=== PATIENT | female | born 1990 | race Caucasian/White ===

== ENCOUNTER → 2017-04-22 | Outpatient (CLI) | payer OTHER ==
[2017-04-22 16:29] LABS: BASO % 0.2 % (0.0-1.0); EOS # 0.2 10^3/uL (0.0-0.50); EOS % 1.9 % (0.0-3.0); IMMATURE GRANULOCYTE % 0.6 % (0-0); LYMPH # 2.2 10^3/uL (1.5-6.5); LYMPH % 24.1 % (24.0-44.0); MEAN CORPUSCULAR HEMOGLOBIN 26.2 pg (27.0-33.0); MEAN CORPUSCULAR HGB CONC 32.5 g/dl (32.0-36.5); MEAN CORPUSCULAR VOLUME 80.8 fl (80.0-96.0); MONO # 0.5 10^3/uL (0.0-0.8); NEUTROPHILS % 67.2 % (36.0-66.0); PLATELET COUNT, AUTOMATED 317 10^3/uL (150-450); RED CELL DISTRIBUTION WIDTH 13.5 % (11.5-14.5)
[2017-04-22 16:55] LABS: FREE T4 0.87 NG/DL (0.76-1.46)
== END ==
LOC: M LRY 11:24
PROVIDERS: ATTEND Nurse Practitioner Women's Health
DX: Z00.00 Encounter for general adult medical examination without abnormal findings (principal)

== ENCOUNTER → 2017-04-24 | Outpatient (CLI) | payer OTHER ==
--- NOTE | 2017-04-24 17:23 | REP ---
NON-OB PELVIC ULTRASOUND: HISTORY: Adnexal pain. The uterus measures 3.2 cm in transverse x 3 cm in AP x 6.7 cm in cephalocaudal dimensions. The endometrium measures 2.3 mm. The right ovary measures 2.9 x 1.3 x 1.6 cm. The left ovary measures 2.2 x 1.1 x 1.4 cm. Complex echogenic material is present in the cervix. IMPRESSION: There is complex echogenic material in the cervix. The examination is otherwise normal. Unreviewed
== END ==
LOC: M RAD 11:54
PROVIDERS: ATTEND Nurse Practitioner Women's Health
DX: R10.2 Pelvic and perineal pain (principal); N94.12 Deep dyspareunia